=== PATIENT | male | born 1955 | race Caucasian/White ===

== ENCOUNTER 2017-09-28 08:36 | Inpatient (IN) | payer OTHER ==
[~2017-09-28 08:36] MED LIST: EPHEDrine SULFATE 50 MG/5 ML SYG
[2017-09-28] MEDS: AMPICILLIN/SULB 3 GM/NS (PMX) 100 ML IVPB (09:00)
[2017-09-28] MEDS ORDERED: PROPOFOL 20 ML (11:35)
[2017-09-28] MEDS ORDERED: ROCURONIUM 50 MG INJ ×2 (11:35→13:52)
[2017-09-28] MEDS ORDERED: MIDAZOLAM 1 MG/ML 2 ML INJ (11:35)
[2017-09-28] MEDS ORDERED: METOCLOPRAMIDE 10 MG INJ (11:35)
[2017-09-28] MEDS ORDERED: KETOROLAC 30 MG INJ (11:35)
[2017-09-28] MEDS ORDERED: ACETAMINOPHEN 1000MG/100ML IV 100 ML (11:35)
[2017-09-28] MEDS ORDERED: ONDANSETRON 4 MG INJ (11:35)
[2017-09-28] MEDS ORDERED: ONDANSETRON 4 MG INJ IV (12:00)
[2017-09-28] MEDS ORDERED: MEPERIDINE 25 MG INJ IV (12:00)
[2017-09-28] MEDS ORDERED: NALOXONE (0.4 MG/ML) INJ IV (12:00)
[2017-09-28] MEDS ORDERED: HYDROmorphONE (0.2 MG/ML) 10ML SYG IV (12:00)
[2017-09-28] MEDS ORDERED: HYDROmorphONE 0.5 MG/0.5 ML SYG IV (12:00)
[2017-09-28] MEDS ORDERED: HYDROmorphONE 2 MG/ML SYG (13:52)
[2017-09-28] MEDS ORDERED: GLYCOPYRROLATE 0.4 MG INJ (13:55)
[2017-09-28] MEDS ORDERED: NEOSTIGMINE 3 MG/3 ML SYRINGE (13:55)
[2017-09-28] MEDS: HYDROmorphONE (0.2 MG/ML) 10ML SYG IV ×4 (14:42→15:06)
[2017-09-28] MEDS: DIPHENHYDRAMINE 50 MG INJ IV (14:42)
[2017-09-28] MEDS: METOCLOPRAMIDE 10 MG INJ IV (14:43)
[2017-09-28] MEDS ORDERED: morphine 1 MG/ML 30 ML (PCA) IV (15:00)
[2017-09-28] MEDS: FENTAnyl 2MCG/ML-ROPIV 0.2% 100 ML BAG EPI ×2 (15:53→20:06)
[2017-09-28] MEDS: D5W-0.45 NACL + KCL 20 MEQ 1,000 ML IV (17:23)
[2017-09-28] MEDS: SOD CHLORIDE 0.9% 1,000 ML IV (19:00)
[2017-09-29] MEDS: D5W-0.45 NACL + KCL 20 MEQ 1,000 ML IV ×4 (01:27→17:55)
[2017-09-29] MEDS: ACETAMINOPHEN 1000MG/100ML IV 100 ML IVPB (01:42)
[2017-09-29] MEDS: FENTAnyl 2MCG/ML-ROPIV 0.2% 100 ML BAG EPI ×4 (04:01→22:04)
[2017-09-29] MEDS: HYDROmorphONE 0.5 MG/0.5 ML SYG IV (06:12)
[2017-09-29 06:36] LABS: ALANINE AMINOTRANSFERASE 45 IU/L (13-69); ALBUMIN 3.1 g/dl (3.3-4.9); ALKALINE PHOSPHATASE 121 IU/L (42-121); ANION GAP 10 (8-16); ASPARTATE AMINO TRANSFERASE 24 IU/L (15-46); BILIRUBIN,INDIRECT 0.3 mg/dl (0-1.1); BILIRUBIN,TOTAL 0.3 mg/dl (0.2-1.3); BLOOD UREA NITROGEN 11 mg/dl (7-20); CALCIUM 8.5 mg/dl (8.4-10.2); CARBON DIOXIDE 28 mmol/L (21-31); CHLORIDE 104 mmol/L (97-110); GLUCOSE 133 mg/dl (70-220); POTASSIUM 4.6 mmol/L (3.5-5.1); SODIUM 137 mmol/L (135-144); TOTAL PROTEIN 5.9 g/dl (6.1-8.1)
[2017-09-29 08:25] LABS: ADD MAN DIFF? NO
[2017-09-29 08:37] LABS: WHITE BLOOD COUNT 11.1 10^3/ul (4.8-10.8)
[2017-09-29 08:37] LABS: BASOPHILS % 0.3 % (0.0-2.0); EOSINOPHILS % 0.2 % (0.0-7.0); HEMATOCRIT 37.4 % (42.0-52.0); HEMOGLOBIN 12.5 g/dl (14.0-18.0); LYMPHOCYTES # 0.7 10^3/ul (0.8-2.9); LYMPHOCYTES % 6.7 % (15.0-51.0); MEAN CORPUSCULAR HEMOGLOBIN 30.9 pg (29.0-33.0); MEAN CORPUSCULAR HGB CONC 33.4 g/dl (32.0-37.0); MEAN CORPUSCULAR VOLUME 92.3 fl (82.0-101.0); MEAN PLATELET VOLUME 9.8 fl (7.4-10.4); MONOCYTE # 0.5 10^3/ul (0.3-0.9); MONOCYTES % 4.8 % (0.0-11.0); NEUTROPHIL # 9.6 10^3/ul (1.6-7.5); NEUTROPHILS % 86.8 % (39.0-77.0); NUCLEATED RED BLOOD CELLS% 0.4 /100WBC (0.0-0.0); PLATELET COUNT 194 10^3/UL (140-415); RED BLOOD COUNT 4.05 10^6/ul (4.70-6.10); RED CELL DISTRIBUTION WIDTH 12.7 % (11.5-14.5)
[2017-09-29 08:42] LABS: INR 1.15; PROTIME 14.9 Sec (11.9-14.9); PT RATIO 1.2
[2017-09-29 08:43] LABS: PARTIAL THROMBOPLASTIN TIME 32.1 Sec (25.0-35.0)
[2017-09-29 08:47] LABS: POTASSIUM 4.9 mmol/L (3.5-5.1)
[2017-09-29 08:48] LABS: ANION GAP 10 (8-16); BLOOD UREA NITROGEN 9 mg/dl (7-20); CALCIUM 8.8 mg/dl (8.4-10.2); CARBON DIOXIDE 30 mmol/L (21-31); CHLORIDE 103 mmol/L (97-110); CREATININE 1.03 mg/dl (0.61-1.24); GLUCOSE 136 mg/dl (70-220); PHOSPHORUS 3.2 mg/dl (2.5-4.9); SODIUM 138 mmol/L (135-144)
[2017-09-29] MEDS: HYDROmorphONE 1 MG/ML SYG IV ×2 (09:07→19:05)
[2017-09-29] MEDS ORDERED: LIDOCAINE 2% (MDV) 20 ML INJ (09:11)
[2017-09-29] MEDS: ONDANSETRON 4 MG INJ IV ×2 (14:17→22:05)
[2017-09-29] MEDS: PIPER-TAZO 3.375 GM IV (PMX) 100 ML IVPB ×2 (14:17→21:58)
[2017-09-30] MEDS: DIPHENHYDRAMINE 50 MG INJ IV ×3 (01:33→12:23)
[2017-09-30] MEDS: D5W-0.45 NACL + KCL 20 MEQ 1,000 ML IV ×2 (02:57→12:23)
[2017-09-30] MEDS: FENTAnyl 2MCG/ML-ROPIV 0.2% 100 ML BAG EPI ×4 (04:03→22:44)
[2017-09-30] MEDS: PIPER-TAZO 3.375 GM IV (PMX) 100 ML IVPB ×3 (05:36→22:05)
[2017-09-30 11:44] LABS: ADD MAN DIFF? NO
[2017-09-30 11:55] LABS: BASOPHILS % 0.3 % (0.0-2.0); EOSINOPHILS # 0.1 10^3/ul (0.0-0.5); EOSINOPHILS % 1.1 % (0.0-7.0); HEMATOCRIT 36.2 % (42.0-52.0); HEMOGLOBIN 12.1 g/dl (14.0-18.0); LYMPHOCYTES # 0.7 10^3/ul (0.8-2.9); LYMPHOCYTES % 7.5 % (15.0-51.0); MEAN CORPUSCULAR HEMOGLOBIN 30.9 pg (29.0-33.0); MEAN CORPUSCULAR HGB CONC 33.4 g/dl (32.0-37.0); MEAN CORPUSCULAR VOLUME 92.3 fl (82.0-101.0); MEAN PLATELET VOLUME 10.3 fl (7.4-10.4); MONOCYTE # 0.5 10^3/ul (0.3-0.9); MONOCYTES % 4.8 % (0.0-11.0); NEUTROPHIL # 8.4 10^3/ul (1.6-7.5); NEUTROPHILS % 85.3 % (39.0-77.0); PLATELET COUNT 168 10^3/UL (140-415); POSITIVE DIFF @See below; RED BLOOD COUNT 3.92 10^6/ul (4.70-6.10); RED CELL DISTRIBUTION WIDTH 12.7 % (11.5-14.5)
[2017-09-30 11:55] LABS: WHITE BLOOD COUNT 9.9 10^3/ul (4.8-10.8)
[2017-09-30 12:13] LABS: ANION GAP 9 (8-16); BLOOD UREA NITROGEN 8 mg/dl (7-20); CARBON DIOXIDE 30 mmol/L (21-31); CHLORIDE 101 mmol/L (97-110); CREATININE 1.05 mg/dl (0.61-1.24); GLUCOSE 92 mg/dl (70-220); PHOSPHORUS 2.7 mg/dl (2.5-4.9); POTASSIUM 5.3 mmol/L (3.5-5.1); SODIUM 135 mmol/L (135-144)
[2017-09-30 12:27] LABS: INR 1.15; PROTIME 14.9 Sec (11.9-14.9); PT RATIO 1.2
[2017-09-30 12:28] LABS: PARTIAL THROMBOPLASTIN TIME 32.2 Sec (25.0-35.0)
[2017-09-30] MEDS: DEXTROSE 5%-0.45% NACL 1,000 ML IV ×2 (15:16→23:54)
[2017-09-30] MEDS: HYDROmorphONE 1 MG/ML SYG IV (21:38)
[2017-10-01] MEDS: ONDANSETRON 4 MG INJ IV (04:07)
[2017-10-01] MEDS: FENTAnyl 2MCG/ML-ROPIV 0.2% 100 ML BAG EPI ×4 (04:53→22:34)
[2017-10-01] MEDS: PIPER-TAZO 3.375 GM IV (PMX) 100 ML IVPB ×3 (05:45→22:32)
[2017-10-01] MEDS: DEXTROSE 5%-0.45% NACL 1,000 ML IV ×3 (07:30→20:00)
[2017-10-01 09:13] LABS: ADD MAN DIFF? NO
[2017-10-01 09:15] LABS: ABNORMAL IP MESSAGE 1; BASOPHILS % 0.2 % (0.0-2.0); EOSINOPHILS % 0.2 % (0.0-7.0); HEMOGLOBIN 12.1 g/dl (14.0-18.0); LYMPHOCYTES # 0.5 10^3/ul (0.8-2.9); LYMPHOCYTES % 5.5 % (15.0-51.0); MEAN CORPUSCULAR HGB CONC 34.6 g/dl (32.0-37.0); MEAN CORPUSCULAR VOLUME 89.7 fl (82.0-101.0); MEAN PLATELET VOLUME 10.3 fl (7.4-10.4); MONOCYTE # 0.3 10^3/ul (0.3-0.9); MONOCYTES % 3.9 % (0.0-11.0); NEUTROPHIL # 7.2 10^3/ul (1.6-7.5); NEUTROPHILS % 88.5 % (39.0-77.0); PLATELET COUNT 180 10^3/UL (140-415); POSITIVE DIFF @See below; RED CELL DISTRIBUTION WIDTH 12.4 % (11.5-14.5)
[2017-10-01 09:15] LABS: WHITE BLOOD COUNT 8.2 10^3/ul (4.8-10.8)
[2017-10-01 09:45] LABS: ANION GAP 13 (8-16); BLOOD UREA NITROGEN 11 mg/dl (7-20); CARBON DIOXIDE 26 mmol/L (21-31); CHLORIDE 99 mmol/L (97-110); GLUCOSE 135 mg/dl (70-220); PHOSPHORUS 3.3 mg/dl (2.5-4.9); POTASSIUM 4.6 mmol/L (3.5-5.1); SODIUM 133 mmol/L (135-144)
[2017-10-01 09:49] LABS: INR 1.14; PROTIME 14.8 Sec (11.9-14.9); PT RATIO 1.2
[2017-10-01 09:50] LABS: PARTIAL THROMBOPLASTIN TIME 28.8 Sec (25.0-35.0)
[2017-10-02] MEDS: FENTAnyl 2MCG/ML-ROPIV 0.2% 100 ML BAG EPI ×3 (04:11→18:37)
[2017-10-02] MEDS: DEXTROSE 5%-0.45% NACL 1,000 ML IV ×2 (04:11→13:33)
[2017-10-02 05:09] LABS: ADD MAN DIFF? NO
[2017-10-02 05:24] LABS: WHITE BLOOD COUNT 6.8 10^3/ul (4.8-10.8)
[2017-10-02 05:24] LABS: BASOPHILS % 0.3 % (0.0-2.0); EOSINOPHILS # 0.1 10^3/ul (0.0-0.5); EOSINOPHILS % 1.8 % (0.0-7.0); HEMATOCRIT 35.7 % (42.0-52.0); HEMOGLOBIN 12.2 g/dl (14.0-18.0); LYMPHOCYTES # 0.9 10^3/ul (0.8-2.9); MEAN CORPUSCULAR HEMOGLOBIN 30.9 pg (29.0-33.0); MEAN CORPUSCULAR HGB CONC 34.2 g/dl (32.0-37.0); MEAN CORPUSCULAR VOLUME 90.4 fl (82.0-101.0); MEAN PLATELET VOLUME 10.6 fl (7.4-10.4); MONOCYTE # 0.4 10^3/ul (0.3-0.9); MONOCYTES % 5.6 % (0.0-11.0); NEUTROPHIL # 5.2 10^3/ul (1.6-7.5); NEUTROPHILS % 77.4 % (39.0-77.0); PLATELET COUNT 192 10^3/UL (140-415); POSITIVE DIFF @See below; RED BLOOD COUNT 3.95 10^6/ul (4.70-6.10); RED CELL DISTRIBUTION WIDTH 12.4 % (11.5-14.5)
[2017-10-02 05:40] LABS: ANION GAP 11 (8-16); BLOOD UREA NITROGEN 11 mg/dl (7-20); CALCIUM 8.9 mg/dl (8.4-10.2); CARBON DIOXIDE 28 mmol/L (21-31); CHLORIDE 101 mmol/L (97-110); CREATININE 0.94 mg/dl (0.61-1.24); GLUCOSE 115 mg/dl (70-220); POTASSIUM 4.2 mmol/L (3.5-5.1); SODIUM 136 mmol/L (135-144)
[2017-10-02] MEDS: PIPER-TAZO 3.375 GM IV (PMX) 100 ML IVPB ×3 (06:08→22:02)
[2017-10-03] MEDS: FENTAnyl 2MCG/ML-ROPIV 0.2% 100 ML BAG EPI ×2 (01:54→10:09)
[2017-10-03] MEDS: DEXTROSE 5%-0.45% NACL 1,000 ML IV ×2 (04:15→19:37)
[2017-10-03 05:26] LABS: ADD MAN DIFF? NO
[2017-10-03 05:33] LABS: ABNORMAL IP MESSAGE 1; BASOPHILS % 0.7 % (0.0-2.0); EOSINOPHILS # 0.1 10^3/ul (0.0-0.5); EOSINOPHILS % 2.8 % (0.0-7.0); HEMATOCRIT 35.8 % (42.0-52.0); LYMPHOCYTES # 0.6 10^3/ul (0.8-2.9); LYMPHOCYTES % 12.9 % (15.0-51.0); MEAN CORPUSCULAR HEMOGLOBIN 30.2 pg (29.0-33.0); MEAN CORPUSCULAR HGB CONC 33.5 g/dl (32.0-37.0); MEAN CORPUSCULAR VOLUME 90.2 fl (82.0-101.0); MEAN PLATELET VOLUME 10.5 fl (7.4-10.4); MONOCYTE # 0.4 10^3/ul (0.3-0.9); MONOCYTES % 8.8 % (0.0-11.0); NEUTROPHIL # 3.3 10^3/ul (1.6-7.5); NEUTROPHILS % 71.5 % (39.0-77.0); PLATELET COUNT 226 10^3/UL (140-415); POSITIVE DIFF @See below; RED BLOOD COUNT 3.97 10^6/ul (4.70-6.10); RED CELL DISTRIBUTION WIDTH 12.3 % (11.5-14.5)
[2017-10-03 05:33] LABS: WHITE BLOOD COUNT 4.6 10^3/ul (4.8-10.8)
[2017-10-03] MEDS: PIPER-TAZO 3.375 GM IV (PMX) 100 ML IVPB ×3 (05:59→22:30)
[2017-10-03 06:09] LABS: ANION GAP 12 (8-16); BLOOD UREA NITROGEN 11 mg/dl (7-20); CARBON DIOXIDE 29 mmol/L (21-31); CHLORIDE 101 mmol/L (97-110); CREATININE 1.04 mg/dl (0.61-1.24); GLUCOSE 107 mg/dl (70-220); POTASSIUM 4.1 mmol/L (3.5-5.1); SODIUM 138 mmol/L (135-144)
[2017-10-04 06:04] LABS: ADD MAN DIFF? NO
[2017-10-04] MEDS: PIPER-TAZO 3.375 GM IV (PMX) 100 ML IVPB ×2 (06:07→13:37)
[2017-10-04 06:23] LABS: ABNORMAL IP MESSAGE 1; BASOPHILS % 0.6 % (0.0-2.0); EOSINOPHILS # 0.1 10^3/ul (0.0-0.5); EOSINOPHILS % 1.9 % (0.0-7.0); HEMATOCRIT 36.4 % (42.0-52.0); HEMOGLOBIN 12.9 g/dl (14.0-18.0); LYMPHOCYTES # 0.6 10^3/ul (0.8-2.9); LYMPHOCYTES % 7.9 % (15.0-51.0); MEAN CORPUSCULAR HGB CONC 35.4 g/dl (32.0-37.0); MEAN CORPUSCULAR VOLUME 87.5 fl (82.0-101.0); MEAN PLATELET VOLUME 10.6 fl (7.4-10.4); MONOCYTE # 0.4 10^3/ul (0.3-0.9); MONOCYTES % 5.9 % (0.0-11.0); NEUTROPHIL # 5.7 10^3/ul (1.6-7.5); NEUTROPHILS % 81.8 % (39.0-77.0); PLATELET COUNT 291 10^3/UL (140-415); POSITIVE DIFF @See below; RED BLOOD COUNT 4.16 10^6/ul (4.70-6.10); RED CELL DISTRIBUTION WIDTH 12.7 % (11.5-14.5)
[2017-10-04] MEDS: morphine 2 MG INJ IV ×2 (06:49→10:25)
[2017-10-04 06:53] LABS: ANION GAP 13 (8-16); BLOOD UREA NITROGEN 11 mg/dl (7-20); CALCIUM 9.2 mg/dl (8.4-10.2); CARBON DIOXIDE 25 mmol/L (21-31); CHLORIDE 103 mmol/L (97-110); CREATININE 0.89 mg/dl (0.61-1.24); GLUCOSE 125 mg/dl (70-220); POTASSIUM 3.5 mmol/L (3.5-5.1); SODIUM 137 mmol/L (135-144)
[2017-10-04] MEDS: DEXTROSE 5%-0.45% NACL 1,000 ML IV (10:25)
[2017-10-04] MEDS: ONDANSETRON 4 MG INJ IV (17:04)
[2017-10-04] MEDS: HYDROCODONE/APAP (10/325) TAB PO (17:06)
[2017-10-05] MEDS: DEXTROSE 5%-0.45% NACL 1,000 ML IV ×2 (00:45→12:53)
[2017-10-05 05:37] LABS: ADD MAN DIFF? NO
[2017-10-05 05:40] LABS: WHITE BLOOD COUNT 7.2 10^3/ul (4.8-10.8)
[2017-10-05 05:40] LABS: BASOPHILS % 0.6 % (0.0-2.0); EOSINOPHILS # 0.2 10^3/ul (0.0-0.5); EOSINOPHILS % 2.2 % (0.0-7.0); HEMATOCRIT 37.8 % (42.0-52.0); HEMOGLOBIN 13.2 g/dl (14.0-18.0); LYMPHOCYTES # 0.8 10^3/ul (0.8-2.9); LYMPHOCYTES % 11.4 % (15.0-51.0); MEAN CORPUSCULAR HEMOGLOBIN 30.5 pg (29.0-33.0); MEAN CORPUSCULAR HGB CONC 34.9 g/dl (32.0-37.0); MEAN CORPUSCULAR VOLUME 87.3 fl (82.0-101.0); MEAN PLATELET VOLUME 10.1 fl (7.4-10.4); MONOCYTE # 0.5 10^3/ul (0.3-0.9); MONOCYTES % 6.2 % (0.0-11.0); NEUTROPHIL # 5.7 10^3/ul (1.6-7.5); NEUTROPHILS % 78.4 % (39.0-77.0); PLATELET COUNT 331 10^3/UL (140-415); RED BLOOD COUNT 4.33 10^6/ul (4.70-6.10); RED CELL DISTRIBUTION WIDTH 12.7 % (11.5-14.5)
[2017-10-05] MEDS: ONDANSETRON 4 MG INJ IV ×2 (12:47→18:34)
[2017-10-05] MEDS: ACETAMINOPHEN 1000MG/100ML IV 100 ML IVPB (12:47)
[2017-10-05] MEDS: HYDROCODONE/APAP (10/325) TAB PO (15:34)
[2017-10-05] MEDS: ENOXAPARIN 40 MG/0.4 ML SYG SC (21:21)
[2017-10-05] MEDS: FAMOTIDINE 20 MG TAB PO (23:15)
[2017-10-05] MEDS: AL HYDROX/MG HYDROX/SIMETH 30 ML CUP PO (23:15)
[2017-10-06] MEDS: DEXTROSE 5%-0.45% NACL 1,000 ML IV (03:11)
[2017-10-06 05:28] LABS: ADD MAN DIFF? NO
[2017-10-06 05:32] LABS: BASOPHILS % 0.5 % (0.0-2.0); EOSINOPHILS # 0.1 10^3/ul (0.0-0.5); EOSINOPHILS % 1.4 % (0.0-7.0); HEMATOCRIT 37.5 % (42.0-52.0); HEMOGLOBIN 13.1 g/dl (14.0-18.0); LYMPHOCYTES # 0.7 10^3/ul (0.8-2.9); LYMPHOCYTES % 9.7 % (15.0-51.0); MEAN CORPUSCULAR HEMOGLOBIN 30.5 pg (29.0-33.0); MEAN CORPUSCULAR HGB CONC 34.9 g/dl (32.0-37.0); MEAN CORPUSCULAR VOLUME 87.4 fl (82.0-101.0); MEAN PLATELET VOLUME 10.4 fl (7.4-10.4); MONOCYTE # 0.4 10^3/ul (0.3-0.9); MONOCYTES % 5.9 % (0.0-11.0); NEUTROPHILS % 81.3 % (39.0-77.0); PLATELET COUNT 386 10^3/UL (140-415); RED BLOOD COUNT 4.29 10^6/ul (4.70-6.10); RED CELL DISTRIBUTION WIDTH 12.7 % (11.5-14.5)
[2017-10-06 05:32] LABS: WHITE BLOOD COUNT 7.4 10^3/ul (4.8-10.8)
[2017-10-06 08:28] LABS: AADO2 Arterial 57.8 mmHg (7.0-24.0); Allen Test ACCEPTAB; Arterial Base Excess -0.3 mmol/L (-3.0-3); Arterial Blood Gas Oxygen Sat 97.5 mmHG (95.0-98.0); Arterial COHb 0.3 % (0.0-3.0); Arterial Fraction of Oxyhgb 96.9 % (93.0-99.0); Arterial HCO3 22.5 mmol/L (22.0-26.0); Arterial MetHb 0.3 % (0.0-1.5); Arterial Total Hemglobin 15.3 g/dl (12.0-18.0); Arterial pCO2 31.8 mmhg (35-45); MODE NASAL CANNULA; Site Right Radial
[2017-10-06] MEDS: FAMOTIDINE 20 MG TAB PO ×2 (09:00→20:18)
[2017-10-06] MEDS: DIATR MEGLU/DIATRIZOATE SODIUM 120 ML BTL (17:38)
[2017-10-06] MEDS: ENOXAPARIN 40 MG/0.4 ML SYG SC (20:26)
[2017-10-06] MEDS: D5-NS + KCL 20 MEQ 1,000 ML IV (20:28)
[2017-10-07] MEDS: D5-NS + KCL 20 MEQ 1,000 ML IV ×3 (04:46→23:55)
[2017-10-07 05:21] LABS: ADD MAN DIFF? NO
[2017-10-07 05:39] LABS: WHITE BLOOD COUNT 6.4 10^3/ul (4.8-10.8)
[2017-10-07 05:39] LABS: BASOPHILS % 0.5 % (0.0-2.0); EOSINOPHILS # 0.2 10^3/ul (0.0-0.5); HEMATOCRIT 38.1 % (42.0-52.0); HEMOGLOBIN 13.1 g/dl (14.0-18.0); LYMPHOCYTES # 0.6 10^3/ul (0.8-2.9); LYMPHOCYTES % 9.9 % (15.0-51.0); MEAN CORPUSCULAR HEMOGLOBIN 30.4 pg (29.0-33.0); MEAN CORPUSCULAR HGB CONC 34.4 g/dl (32.0-37.0); MEAN CORPUSCULAR VOLUME 88.4 fl (82.0-101.0); MEAN PLATELET VOLUME 10.4 fl (7.4-10.4); MONOCYTE # 0.4 10^3/ul (0.3-0.9); MONOCYTES % 6.4 % (0.0-11.0); NEUTROPHILS % 78.9 % (39.0-77.0); PLATELET COUNT 416 10^3/UL (140-415); RED BLOOD COUNT 4.31 10^6/ul (4.70-6.10); RED CELL DISTRIBUTION WIDTH 13.1 % (11.5-14.5)
[2017-10-07 06:32] LABS: ANION GAP 12 (8-16); BLOOD UREA NITROGEN 22 mg/dl (7-20); CALCIUM 9.2 mg/dl (8.4-10.2); CARBON DIOXIDE 23 mmol/L (21-31); CHLORIDE 104 mmol/L (97-110); CREATININE 0.88 mg/dl (0.61-1.24); GLUCOSE 131 mg/dl (70-220); POTASSIUM 4.3 mmol/L (3.5-5.1); SODIUM 135 mmol/L (135-144)
[2017-10-07] MEDS: FAMOTIDINE 20 MG TAB PO ×2 (09:03→20:24)
[2017-10-07] MEDS: ENOXAPARIN 40 MG/0.4 ML SYG SC (09:09)
[2017-10-08 05:17] LABS: ADD MAN DIFF? NO
[2017-10-08 05:24] LABS: BASOPHILS % 0.7 % (0.0-2.0); EOSINOPHILS # 0.2 10^3/ul (0.0-0.5); EOSINOPHILS % 2.4 % (0.0-7.0); HEMATOCRIT 35.6 % (42.0-52.0); HEMOGLOBIN 12.5 g/dl (14.0-18.0); LYMPHOCYTES # 0.6 10^3/ul (0.8-2.9); LYMPHOCYTES % 9.9 % (15.0-51.0); MEAN CORPUSCULAR HEMOGLOBIN 31.2 pg (29.0-33.0); MEAN CORPUSCULAR HGB CONC 35.1 g/dl (32.0-37.0); MEAN CORPUSCULAR VOLUME 88.8 fl (82.0-101.0); MEAN PLATELET VOLUME 10.2 fl (7.4-10.4); MONOCYTE # 0.5 10^3/ul (0.3-0.9); MONOCYTES % 7.3 % (0.0-11.0); NEUTROPHIL # 4.8 10^3/ul (1.6-7.5); NEUTROPHILS % 78.7 % (39.0-77.0); PLATELET COUNT 362 10^3/UL (140-415); RED BLOOD COUNT 4.01 10^6/ul (4.70-6.10)
[2017-10-08 05:24] LABS: WHITE BLOOD COUNT 6.1 10^3/ul (4.8-10.8)
[2017-10-08 05:59] LABS: ALANINE AMINOTRANSFERASE 59 IU/L (13-69); ALBUMIN 3.4 g/dl (3.3-4.9); ALBUMIN/GLOBULIN RATIO 1.09; ALKALINE PHOSPHATASE 123 IU/L (42-121); ANION GAP 14 (8-16); ASPARTATE AMINO TRANSFERASE 31 IU/L (15-46); BILIRUBIN,INDIRECT 0.3 mg/dl (0-1.1); BILIRUBIN,TOTAL 0.3 mg/dl (0.2-1.3); BLOOD UREA NITROGEN 20 mg/dl (7-20); CALCIUM 9.1 mg/dl (8.4-10.2); CARBON DIOXIDE 21 mmol/L (21-31); CHLORIDE 106 mmol/L (97-110); CREATININE 0.79 mg/dl (0.61-1.24); GLUCOSE 114 mg/dl (70-220); POTASSIUM 4.3 mmol/L (3.5-5.1); SODIUM 137 mmol/L (135-144); TOTAL PROTEIN 6.5 g/dl (6.1-8.1)
[2017-10-08] MEDS: FAMOTIDINE 20 MG TAB PO ×2 (08:53→20:58)
[2017-10-08] MEDS: ENOXAPARIN 40 MG/0.4 ML SYG SC (08:54)
[2017-10-08] MEDS: D5-NS + KCL 20 MEQ 1,000 ML IV ×2 (09:43→19:40)
[2017-10-09] MEDS: D5-NS + KCL 20 MEQ 1,000 ML IV ×2 (05:54→16:09)
[2017-10-09] MEDS: FAMOTIDINE 20 MG TAB PO ×2 (08:42→21:46)
[2017-10-09] MEDS: ENOXAPARIN 40 MG/0.4 ML SYG SC (08:43)
[2017-10-09] MEDS: METOCLOPRAMIDE 5 MG TAB PO (21:46)
[2017-10-10] MEDS: D5-NS + KCL 20 MEQ 1,000 ML IV ×3 (02:55→21:21)
[2017-10-10 05:43] LABS: ADD MAN DIFF? NO
[2017-10-10 05:57] LABS: WHITE BLOOD COUNT 3.8 10^3/ul (4.8-10.8)
[2017-10-10 05:57] LABS: ABNORMAL IP MESSAGE 1; BASOPHILS % 0.8 % (0.0-2.0); EOSINOPHILS # 0.1 10^3/ul (0.0-0.5); EOSINOPHILS % 3.1 % (0.0-7.0); HEMATOCRIT 33.2 % (42.0-52.0); HEMOGLOBIN 11.1 g/dl (14.0-18.0); LYMPHOCYTES # 0.6 10^3/ul (0.8-2.9); MEAN CORPUSCULAR HEMOGLOBIN 30.4 pg (29.0-33.0); MEAN CORPUSCULAR HGB CONC 33.4 g/dl (32.0-37.0); MONOCYTE # 0.4 10^3/ul (0.3-0.9); MONOCYTES % 10.5 % (0.0-11.0); NEUTROPHIL # 2.7 10^3/ul (1.6-7.5); NEUTROPHILS % 70.1 % (39.0-77.0); PLATELET COUNT 326 10^3/UL (140-415); POSITIVE DIFF @See below; RED BLOOD COUNT 3.65 10^6/ul (4.70-6.10); RED CELL DISTRIBUTION WIDTH 12.9 % (11.5-14.5)
[2017-10-10 06:40] LABS: ANION GAP 12 (8-16); BLOOD UREA NITROGEN 15 mg/dl (7-20); CALCIUM 8.6 mg/dl (8.4-10.2); CARBON DIOXIDE 22 mmol/L (21-31); CHLORIDE 108 mmol/L (97-110); GLUCOSE 88 mg/dl (70-220); SODIUM 138 mmol/L (135-144)
[2017-10-10] MEDS: FAMOTIDINE 20 MG TAB PO ×2 (08:19→21:19)
[2017-10-10] MEDS: METOCLOPRAMIDE 5 MG TAB PO ×3 (08:19→21:19)
[2017-10-10] MEDS: ENOXAPARIN 40 MG/0.4 ML SYG SC (08:21)
[2017-10-11 05:08] LABS: ADD MAN DIFF? NO
[2017-10-11 05:11] LABS: WHITE BLOOD COUNT 4.9 10^3/ul (4.8-10.8)
[2017-10-11 05:11] LABS: ABNORMAL IP MESSAGE 1; BASOPHILS % 0.2 % (0.0-2.0); EOSINOPHILS # 0.1 10^3/ul (0.0-0.5); EOSINOPHILS % 2.4 % (0.0-7.0); HEMATOCRIT 33.4 % (42.0-52.0); HEMOGLOBIN 11.6 g/dl (14.0-18.0); LYMPHOCYTES # 0.6 10^3/ul (0.8-2.9); LYMPHOCYTES % 11.8 % (15.0-51.0); MEAN CORPUSCULAR HEMOGLOBIN 31.2 pg (29.0-33.0); MEAN CORPUSCULAR HGB CONC 34.7 g/dl (32.0-37.0); MEAN CORPUSCULAR VOLUME 89.8 fl (82.0-101.0); MEAN PLATELET VOLUME 9.9 fl (7.4-10.4); MONOCYTE # 0.4 10^3/ul (0.3-0.9); MONOCYTES % 7.7 % (0.0-11.0); NEUTROPHIL # 3.8 10^3/ul (1.6-7.5); NEUTROPHILS % 77.3 % (39.0-77.0); PLATELET COUNT 325 10^3/UL (140-415); POSITIVE DIFF @See below; RED BLOOD COUNT 3.72 10^6/ul (4.70-6.10); RED CELL DISTRIBUTION WIDTH 13.2 % (11.5-14.5)
[2017-10-11 05:40] LABS: ANION GAP 10 (8-16); BLOOD UREA NITROGEN 14 mg/dl (7-20); CARBON DIOXIDE 25 mmol/L (21-31); CHLORIDE 108 mmol/L (97-110); CREATININE 0.88 mg/dl (0.61-1.24); GLUCOSE 94 mg/dl (70-220); POTASSIUM 4.8 mmol/L (3.5-5.1); SODIUM 138 mmol/L (135-144)
[2017-10-11] MEDS: FAMOTIDINE 20 MG TAB PO (09:35)
[2017-10-11] MEDS: METOCLOPRAMIDE 5 MG TAB PO ×2 (09:35→13:42)
[2017-10-11] MEDS: ENOXAPARIN 40 MG/0.4 ML SYG SC (09:35)
== END 2017-10-11 19:10 | disposition home or self-care (01) | DRG 330 ==
LOC: REC 08:36 → MS1 17:04
PROC: 0D1H0Z4 Bypass Cecum to Cutaneous, Open Approach (ICD-10-PCS; principal; 2017-09-28 10:30)
PROC: 0DBM0ZZ Excision of Descending Colon, Open Approach (ICD-10-PCS; 2017-09-28 10:30)
PROC: 0DTN0ZZ Resection of Sigmoid Colon, Open Approach (ICD-10-PCS; 2017-09-28 10:30)
PROC: 0DBP0ZZ Excision of Rectum, Open Approach (ICD-10-PCS; 2017-09-28 10:30)
PROC: 0DJD8ZZ Inspection of Lower Intestinal Tract, Via Natural or Artificial Opening Endoscopic (ICD-10-PCS; 2017-09-28 10:30)
DX: C20 Malignant neoplasm of rectum (principal); K56.7 Ileus, unspecified; E87.5 Hyperkalemia
CPT/HCPCS: 36600; 71045; 74240; 74250; 80048; 80053; 82803; 83735; 84100; 84132; 85025; 85610; 85730; 87086; 88307; 93005; 93970; 97110; 97116; 97162

== ENCOUNTER 2017-10-22 14:59 | Inpatient (IN) | payer OTHER ==
[2017-10-22 17:21] LABS: ADD MAN DIFF? NO
[2017-10-22 17:22] LABS: WHITE BLOOD COUNT 13.3 10^3/ul (4.8-10.8)
[2017-10-22 17:23] LABS: ABNORMAL IP MESSAGE 1; BASOPHILS % 0.2 % (0.0-2.0); HEMATOCRIT 35.8 % (42.0-52.0); HEMOGLOBIN 12.5 g/dl (14.0-18.0); LYMPHOCYTES # 0.4 10^3/ul (0.8-2.9); LYMPHOCYTES % 2.7 % (15.0-51.0); MEAN CORPUSCULAR HEMOGLOBIN 30.1 pg (29.0-33.0); MEAN CORPUSCULAR HGB CONC 34.9 g/dl (32.0-37.0); MEAN CORPUSCULAR VOLUME 86.3 fl (82.0-101.0); MEAN PLATELET VOLUME 9.9 fl (7.4-10.4); MONOCYTE # 0.4 10^3/ul (0.3-0.9); MONOCYTES % 2.9 % (0.0-11.0); NEUTROPHIL # 12.5 10^3/ul (1.6-7.5); NEUTROPHILS % 93.8 % (39.0-77.0); PLATELET COUNT 284 10^3/UL (140-415); POSITIVE DIFF @See below; RED BLOOD COUNT 4.15 10^6/ul (4.70-6.10); RED CELL DISTRIBUTION WIDTH 12.9 % (11.5-14.5)
[2017-10-22] MEDS: CEFEPIME 1GM/50 ML (PMX) 50 ML IVPB (17:23)
[2017-10-22] MEDS: ACETAMINOPHEN 325 MG TAB PO (17:23)
[2017-10-22] MEDS: HYDROmorphONE 1 MG/ML SYG IV (17:24)
[2017-10-22] MEDS: SODIUM CHLORIDE 0.9% 1L BAG IV* (17:24)
[2017-10-22 17:40] LABS: PARTIAL THROMBOPLASTIN TIME 35.5 Sec (25.0-35.0)
[2017-10-22 17:43] LABS: ALANINE AMINOTRANSFERASE 32 IU/L (13-69); ALBUMIN 3.7 g/dl (3.3-4.9); ALBUMIN/GLOBULIN RATIO 1.27; ALKALINE PHOSPHATASE 128 IU/L (42-121); ANION GAP 17 (8-16); ASPARTATE AMINO TRANSFERASE 17 IU/L (15-46); BILIRUBIN,INDIRECT 0.6 mg/dl (0-1.1); BILIRUBIN,TOTAL 0.6 mg/dl (0.2-1.3); BLOOD UREA NITROGEN 12 mg/dl (7-20); CALCIUM 9.3 mg/dl (8.4-10.2); CARBON DIOXIDE 22 mmol/L (21-31); CHLORIDE 99 mmol/L (97-110); CREATININE 0.94 mg/dl (0.61-1.24); GLUCOSE 123 mg/dl (70-220); LIPASE 96 U/L (23-300); POTASSIUM 4.3 mmol/L (3.5-5.1); SODIUM 134 mmol/L (135-144); TOTAL PROTEIN 6.6 g/dl (6.1-8.1)
[2017-10-22 17:48] LABS: INR 1.18; PROTIME 15.2 Sec (11.9-14.9); PT RATIO 1.2
[2017-10-22 17:56] LABS: TROPONIN-I < 0.012 ng/ml (0.00-0.12)
[2017-10-22 17:58] LABS: LACTIC ACID 2.3 mmol/L (0.5-2.0)
[2017-10-22 18:17] LABS: ADD UMIC YES; UR ASCORBIC ACID NEGATIVE (NEGATIVE); UR BILIRUBIN (Dip) NEGATIVE (NEGATIVE); UR BLOOD (Dip) 1+ mg/dL (NEGATIVE); UR CLARITY SLIGHTLY CLOUDY (CLEAR); UR COLOR YELLOW (YELLOW); UR GLUCOSE (Dip) NEGATIVE (NEGATIVE); UR KETONES (Dip) 1+ mg/dL (NEGATIVE); UR LEUKOCYTE ESTERASE (Dip) NEGATIVE Leu/ul (NEGATIVE); UR MUCUS FEW /HPF (NONE SEEN); UR NITRITE (Dip) NEGATIVE (NEGATIVE); UR RBC 0 /HPF (0-5); UR SPECIFIC GRAVITY (Dip) 1.019 (1.003-1.030); UR TOTAL PROTEIN (Dip) 1+ mg/dl (NEGATIVE); UR UROBILINOGEN (Dip) NEGATIVE (NEGATIVE); UR WBC 0 /HPF (0-5)
[2017-10-22] MEDS: SOD CHLORIDE 0.9% 100 ML (18:49)
[2017-10-22] MEDS: IOHEXOL 300MG/ML 150 ML BTL (18:49)
[2017-10-22] MEDS: metroNIDAZOLE 500 MG/NS (PMX) 100 ML IVPB (20:13)
[2017-10-23] MEDS ORDERED: NACL 0.9% 3 ML SYG IV (00:30)
[2017-10-23] MEDS ORDERED: ONDANSETRON 4 MG INJ IV (00:30)
[2017-10-23] MEDS: ACETAMINOPHEN 325 MG TAB PO (02:13)
[2017-10-23] MEDS: HYDROmorphONE 1 MG/ML SYG IV ×2 (03:27)
[2017-10-23] MEDS: HYDROmorphONE 2 MG/ML SYG IV ×3 (04:20→18:52)
[2017-10-23] MEDS: ONDANSETRON 4 MG INJ IV ×4 (07:49→18:52)
[2017-10-23] MEDS: FAMOTIDINE 20 MG INJ IV ×2 (08:13→21:13)
[2017-10-23] MEDS: ENOXAPARIN 30 MG/0.3 ML SYG SC (09:09)
[2017-10-23 11:20] LABS: WHITE BLOOD COUNT 9.9 10^3/ul (4.8-10.8)
[2017-10-23 11:20] LABS: ABNORMAL IP MESSAGE 1; HEMATOCRIT 35.9 % (42.0-52.0); HEMOGLOBIN 12.4 g/dl (14.0-18.0); MEAN CORPUSCULAR HEMOGLOBIN 30.8 pg (29.0-33.0); MEAN CORPUSCULAR HGB CONC 34.5 g/dl (32.0-37.0); MEAN CORPUSCULAR VOLUME 89.1 fl (82.0-101.0); MEAN PLATELET VOLUME 9.5 fl (7.4-10.4); PLATELET COUNT 249 10^3/UL (140-415); POSITIVE DIFF @See below; RED BLOOD COUNT 4.03 10^6/ul (4.70-6.10); RED CELL DISTRIBUTION WIDTH 12.9 % (11.5-14.5)
[2017-10-23 11:23] LABS: ADD MAN DIFF? YES
[2017-10-23 11:55] LABS: ANION GAP 13 (8-16); BLOOD UREA NITROGEN 13 mg/dl (7-20); CALCIUM 9.3 mg/dl (8.4-10.2); CARBON DIOXIDE 24 mmol/L (21-31); CHLORIDE 103 mmol/L (97-110); CREATININE 0.88 mg/dl (0.61-1.24); GLUCOSE 142 mg/dl (70-220); POTASSIUM 4.7 mmol/L (3.5-5.1); SODIUM 135 mmol/L (135-144)
[2017-10-23] MEDS ORDERED: VANCOMYCIN IV PER PHARMACY XX (12:00)
[2017-10-23] MEDS: D5W-0.45 NACL + KCL 20 MEQ 1,000 ML IV ×3 (12:11→21:47)
[2017-10-23 12:38] LABS: ANISOCYTOSIS 1+ (0-0); BAND NEUTROPHILS #M 1.4 10^3/ul (0.0-0.6); BAND NEUTROPHILS % (M) 15 % (0-4); BURR CELLS 1+ (0-0); LYMPHOCYTES #M 0.4 10^3/ul (0.8-2.9); LYMPHOCYTES % (M) 5 % (15-51); MICROCYTOSIS 1+ (0-0); MONOCYTE #M 0.1 10^3/ul (0.3-0.9); MONOCYTES % (M) 2 % (0-11); MYELOCYTES % (M) 1 % (0-0); PLATELET ESTIMATE NORMAL; POIKILOCYTOSIS 1+ (0-0); REACTIVE LYMPHOCYTES #M 0.1 10^3/ul (0.0-0.0); REACTIVE LYMPHOCYTES% (M) 2 % (0-0); SEG NEUT #M 7.6 10^3/ul (1.6-7.5); SEGMENTED NEUTROPHILS (M) % 75 % (39-77)
[2017-10-23] MEDS ORDERED: MEROPENEM 500MG/50 ML (PMX) 50 ML IVPB (13:00)
[2017-10-23] MEDS: MEROPENEM 1 GM/50ML(PMX) 50 ML IVPB ×2 (13:25→21:12)
[2017-10-23] MEDS: VANCOMYCIN 1.25 GM in SOD CHLORIDE 0.9% 250 ML IVPB (14:22)
[2017-10-23 15:11] LABS: ADD UMIC YES; UR ASCORBIC ACID NEGATIVE (NEGATIVE); UR BILIRUBIN (Dip) NEGATIVE (NEGATIVE); UR BLOOD (Dip) 1+ mg/dL (NEGATIVE); UR CLARITY CLEAR (CLEAR); UR COLOR YELLOW (YELLOW); UR GLUCOSE (Dip) NEGATIVE (NEGATIVE); UR KETONES (Dip) 1+ mg/dL (NEGATIVE); UR LEUKOCYTE ESTERASE (Dip) NEGATIVE Leu/ul (NEGATIVE); UR MUCUS FEW /HPF (NONE SEEN); UR NITRITE (Dip) NEGATIVE (NEGATIVE); UR RBC 0 /HPF (0-5); UR SPECIFIC GRAVITY (Dip) 1.026 (1.003-1.030); UR TOTAL PROTEIN (Dip) 1+ mg/dl (NEGATIVE); UR UROBILINOGEN (Dip) NEGATIVE (NEGATIVE); UR WBC 1 /HPF (0-5)
[2017-10-24] MEDS: VANCOMYCIN 1 GM 250 ML IVPB ×2 (02:14→14:51)
[2017-10-24] MEDS: D5W-0.45 NACL + KCL 20 MEQ 1,000 ML IV ×3 (03:40→19:01)
[2017-10-24 05:17] LABS: ADD MAN DIFF? NO
[2017-10-24 05:34] LABS: WHITE BLOOD COUNT 5.6 10^3/ul (4.8-10.8)
[2017-10-24 05:34] LABS: ABNORMAL IP MESSAGE 1; BASOPHILS % 0.2 % (0.0-2.0); EOSINOPHILS % 0.7 % (0.0-7.0); HEMATOCRIT 30.9 % (42.0-52.0); HEMOGLOBIN 10.4 g/dl (14.0-18.0); LYMPHOCYTES # 0.5 10^3/ul (0.8-2.9); LYMPHOCYTES % 8.2 % (15.0-51.0); MEAN CORPUSCULAR HEMOGLOBIN 30.2 pg (29.0-33.0); MEAN CORPUSCULAR HGB CONC 33.7 g/dl (32.0-37.0); MEAN CORPUSCULAR VOLUME 89.8 fl (82.0-101.0); MEAN PLATELET VOLUME 10.2 fl (7.4-10.4); MONOCYTE # 0.3 10^3/ul (0.3-0.9); MONOCYTES % 5.9 % (0.0-11.0); NEUTROPHIL # 4.7 10^3/ul (1.6-7.5); NEUTROPHILS % 84.8 % (39.0-77.0); PLATELET COUNT 222 10^3/UL (140-415); POSITIVE DIFF @See below; RED BLOOD COUNT 3.44 10^6/ul (4.70-6.10)
[2017-10-24 05:40] LABS: ANION GAP 10 (8-16); BLOOD UREA NITROGEN 13 mg/dl (7-20); CALCIUM 8.8 mg/dl (8.4-10.2); CARBON DIOXIDE 26 mmol/L (21-31); CHLORIDE 104 mmol/L (97-110); CREATININE 0.79 mg/dl (0.61-1.24); GLUCOSE 109 mg/dl (70-220); POTASSIUM 4.5 mmol/L (3.5-5.1); SODIUM 135 mmol/L (135-144)
[2017-10-24 05:44] LABS: ALANINE AMINOTRANSFERASE 28 IU/L (13-69); ALBUMIN 2.8 g/dl (3.3-4.9); ALBUMIN/GLOBULIN RATIO 0.96; ALKALINE PHOSPHATASE 90 IU/L (42-121); ANION GAP 9 (8-16); ASPARTATE AMINO TRANSFERASE 13 IU/L (15-46); BILIRUBIN,INDIRECT 0.1 mg/dl (0-1.1); BILIRUBIN,TOTAL 0.1 mg/dl (0.2-1.3); BLOOD UREA NITROGEN 13 mg/dl (7-20); CALCIUM 8.6 mg/dl (8.4-10.2); CARBON DIOXIDE 27 mmol/L (21-31); CHLORIDE 105 mmol/L (97-110); GLUCOSE 108 mg/dl (70-220); POTASSIUM 4.3 mmol/L (3.5-5.1); SODIUM 137 mmol/L (135-144); TOTAL PROTEIN 5.7 g/dl (6.1-8.1)
[2017-10-24] MEDS: MEROPENEM 1 GM/50ML(PMX) 50 ML IVPB ×3 (06:44→21:30)
[2017-10-24] MEDS: INFLUENZA VIRUS VACCINE 0.5 ML (DISPENSING) IM* (06:48)
[2017-10-24] MEDS: FAMOTIDINE 20 MG INJ IV ×2 (08:11→21:25)
[2017-10-24] MEDS: HYDROmorphONE 2 MG/ML SYG IV ×3 (08:11→21:25)
[2017-10-24] MEDS: ENOXAPARIN 30 MG/0.3 ML SYG SC (08:16)
[2017-10-24] MEDS: NYSTATIN SUSP 5 ML CUP PO ×2 (17:00→21:25)
[2017-10-25 03:24] LABS: VANCOMYCIN,TROUGH 7.2 ug/ml (10.0-20.0)
[2017-10-25] MEDS: VANCOMYCIN 1 GM 250 ML IVPB ×3 (03:30→19:29)
[2017-10-25] MEDS: ONDANSETRON 4 MG INJ IV (05:19)
[2017-10-25] MEDS: D5W-0.45 NACL + KCL 20 MEQ 1,000 ML IV ×3 (05:19→21:03)
[2017-10-25] MEDS: HYDROmorphONE 2 MG/ML SYG IV ×2 (05:24→10:09)
[2017-10-25] MEDS: MEROPENEM 1 GM/50ML(PMX) 50 ML IVPB ×3 (05:51→21:40)
[2017-10-25] MEDS: FAMOTIDINE 20 MG INJ IV ×2 (08:34→21:03)
[2017-10-25] MEDS: ENOXAPARIN 30 MG/0.3 ML SYG SC (08:40)
[2017-10-25] MEDS: NYSTATIN SUSP 5 ML CUP PO ×4 (08:41→21:39)
[2017-10-25] MEDS ORDERED: HYDROmorphONE 0.5 MG/0.5 ML SYG IV ×3 (10:00→16:58)
[2017-10-25] MEDS: HYDROmorphONE 1 MG/ML SYG IV ×4 (14:21→21:51)
[2017-10-25] MEDS ORDERED: DIATR MEGLU/DIATRIZOATE SODIUM 120 ML BTL (15:13)
[2017-10-26] MEDS: VANCOMYCIN 1 GM 250 ML IVPB ×3 (02:37→18:13)
[2017-10-26 02:56] LABS: VANCOMYCIN,TROUGH 14.8 ug/ml (10.0-20.0)
[2017-10-26 05:31] LABS: ADD MAN DIFF? NO
[2017-10-26 05:35] LABS: WHITE BLOOD COUNT 6.9 10^3/ul (4.8-10.8)
[2017-10-26 05:35] LABS: BASOPHILS % 0.3 % (0.0-2.0); EOSINOPHILS % 0.6 % (0.0-7.0); HEMATOCRIT 33.9 % (42.0-52.0); HEMOGLOBIN 11.3 g/dl (14.0-18.0); LYMPHOCYTES # 0.8 10^3/ul (0.8-2.9); LYMPHOCYTES % 11.2 % (15.0-51.0); MEAN CORPUSCULAR HEMOGLOBIN 29.7 pg (29.0-33.0); MEAN CORPUSCULAR HGB CONC 33.3 g/dl (32.0-37.0); MONOCYTE # 0.5 10^3/ul (0.3-0.9); MONOCYTES % 7.1 % (0.0-11.0); NEUTROPHIL # 5.5 10^3/ul (1.6-7.5); NEUTROPHILS % 80.5 % (39.0-77.0); PLATELET COUNT 256 10^3/UL (140-415); RED BLOOD COUNT 3.81 10^6/ul (4.70-6.10); RED CELL DISTRIBUTION WIDTH 12.4 % (11.5-14.5)
[2017-10-26 05:51] LABS: ANION GAP 10 (8-16); BLOOD UREA NITROGEN 9 mg/dl (7-20); CALCIUM 8.9 mg/dl (8.4-10.2); CARBON DIOXIDE 32 mmol/L (21-31); CHLORIDE 100 mmol/L (97-110); CREATININE 0.95 mg/dl (0.61-1.24); GLUCOSE 133 mg/dl (70-220); POTASSIUM 4.7 mmol/L (3.5-5.1); SODIUM 137 mmol/L (135-144)
[2017-10-26] MEDS: MEROPENEM 1 GM/50ML(PMX) 50 ML IVPB ×3 (05:52→21:18)
[2017-10-26] MEDS: HYDROmorphONE 1 MG/ML SYG IV ×5 (05:57→21:17)
[2017-10-26] MEDS: D5W-0.45 NACL + KCL 20 MEQ 1,000 ML IV ×3 (05:58→17:10)
[2017-10-26] MEDS: NYSTATIN SUSP 5 ML CUP PO ×4 (09:00→21:17)
[2017-10-26] MEDS: FAMOTIDINE 20 MG INJ IV ×2 (09:00→21:17)
[2017-10-26] MEDS: ENOXAPARIN 30 MG/0.3 ML SYG SC (09:01)
[2017-10-27] MEDS: HYDROmorphONE 1 MG/ML SYG IV ×4 (00:11→10:01)
[2017-10-27] MEDS: VANCOMYCIN 1 GM 250 ML IVPB ×2 (02:57→12:30)
[2017-10-27 05:48] LABS: ADD MAN DIFF? NO
[2017-10-27 05:56] LABS: BASOPHILS % 0.3 % (0.0-2.0); EOSINOPHILS # 0.1 10^3/ul (0.0-0.5); EOSINOPHILS % 1.4 % (0.0-7.0); HEMATOCRIT 34.1 % (42.0-52.0); HEMOGLOBIN 11.2 g/dl (14.0-18.0); LYMPHOCYTES # 0.9 10^3/ul (0.8-2.9); LYMPHOCYTES % 12.3 % (15.0-51.0); MEAN CORPUSCULAR HEMOGLOBIN 29.4 pg (29.0-33.0); MEAN CORPUSCULAR HGB CONC 32.8 g/dl (32.0-37.0); MEAN CORPUSCULAR VOLUME 89.5 fl (82.0-101.0); MEAN PLATELET VOLUME 10.2 fl (7.4-10.4); MONOCYTE # 0.6 10^3/ul (0.3-0.9); MONOCYTES % 8.6 % (0.0-11.0); NEUTROPHIL # 5.5 10^3/ul (1.6-7.5); NEUTROPHILS % 76.8 % (39.0-77.0); PLATELET COUNT 258 10^3/UL (140-415); RED BLOOD COUNT 3.81 10^6/ul (4.70-6.10); RED CELL DISTRIBUTION WIDTH 12.5 % (11.5-14.5)
[2017-10-27 05:56] LABS: WHITE BLOOD COUNT 7.1 10^3/ul (4.8-10.8)
[2017-10-27] MEDS: MEROPENEM 1 GM/50ML(PMX) 50 ML IVPB (06:09)
[2017-10-27 06:15] LABS: CREATININE 0.87 mg/dl (0.61-1.24)
[2017-10-27 06:15] LABS: BLOOD UREA NITROGEN 9 mg/dl (7-20)
[2017-10-27 06:22] LABS: ANION GAP 10 (8-16); BLOOD UREA NITROGEN 9 mg/dl (7-20); CARBON DIOXIDE 29 mmol/L (21-31); CHLORIDE 98 mmol/L (97-110); CREATININE 0.89 mg/dl (0.61-1.24); GLUCOSE 101 mg/dl (70-220); POTASSIUM 4.4 mmol/L (3.5-5.1); SODIUM 133 mmol/L (135-144)
[2017-10-27] MEDS: FAMOTIDINE 20 MG INJ IV ×2 (08:58→20:16)
[2017-10-27] MEDS: NYSTATIN SUSP 5 ML CUP PO ×4 (08:58→20:17)
[2017-10-27] MEDS: ENOXAPARIN 30 MG/0.3 ML SYG SC (09:55)
[2017-10-27] MEDS: D5W-0.45 NACL + KCL 20 MEQ 1,000 ML IV ×3 (10:04→22:33)
[2017-10-27] MEDS ORDERED: HYDROmorphONE 1 MG/ML SYG IV (14:15)
[2017-10-27] MEDS: HYDROmorphONE 0.5 MG/0.5 ML SYG IV ×3 (15:25→22:29)
[2017-10-27] MEDS: TAMSULOSIN (SR) 0.4 MG CAP PO (22:29)
[2017-10-27] MEDS: ACETAMINOPHEN 325 MG TAB PO (23:35)
[2017-10-28] MEDS: HYDROmorphONE 0.5 MG/0.5 ML SYG IV ×7 (01:47→23:20)
[2017-10-28 05:27] LABS: ADD MAN DIFF? NO
[2017-10-28 05:41] LABS: WHITE BLOOD COUNT 6.5 10^3/ul (4.8-10.8)
[2017-10-28 05:41] LABS: BASOPHILS % 0.5 % (0.0-2.0); EOSINOPHILS # 0.1 10^3/ul (0.0-0.5); LYMPHOCYTES % 14.8 % (15.0-51.0); MEAN CORPUSCULAR HEMOGLOBIN 30.5 pg (29.0-33.0); MEAN CORPUSCULAR HGB CONC 34.3 g/dl (32.0-37.0); MEAN CORPUSCULAR VOLUME 88.8 fl (82.0-101.0); MONOCYTE # 0.6 10^3/ul (0.3-0.9); MONOCYTES % 8.8 % (0.0-11.0); NEUTROPHIL # 4.8 10^3/ul (1.6-7.5); NEUTROPHILS % 73.3 % (39.0-77.0); PLATELET COUNT 271 10^3/UL (140-415); RED BLOOD COUNT 3.94 10^6/ul (4.70-6.10); RED CELL DISTRIBUTION WIDTH 12.8 % (11.5-14.5)
[2017-10-28 06:13] LABS: ANION GAP 17 (8-16); BLOOD UREA NITROGEN 10 mg/dl (7-20); CALCIUM 9.5 mg/dl (8.4-10.2); CARBON DIOXIDE 29 mmol/L (21-31); CHLORIDE 98 mmol/L (97-110); GLUCOSE 119 mg/dl (70-220); POTASSIUM 4.3 mmol/L (3.5-5.1); SODIUM 140 mmol/L (135-144)
[2017-10-28] MEDS: D5W-0.45 NACL + KCL 20 MEQ 1,000 ML IV ×2 (06:47→16:23)
[2017-10-28] MEDS: NYSTATIN SUSP 5 ML CUP PO ×4 (08:28→20:17)
[2017-10-28] MEDS: FAMOTIDINE 20 MG INJ IV ×2 (08:28→20:17)
[2017-10-28] MEDS: ENOXAPARIN 30 MG/0.3 ML SYG SC (08:29)
[2017-10-28] MEDS: ACETAMINOPHEN 325 MG TAB PO (10:38)
[2017-10-28] MEDS: HYDROCODONE/APAP (5/325) TAB PO (18:53)
[2017-10-28] MEDS: METOCLOPRAMIDE 5 MG TAB PO (20:17)
[2017-10-28] MEDS: TAMSULOSIN (SR) 0.4 MG CAP PO (20:24)
[2017-10-29] MEDS: HYDROCODONE/APAP (5/325) TAB PO ×4 (01:01→18:50)
[2017-10-29] MEDS: D5W-0.45 NACL + KCL 20 MEQ 1,000 ML IV ×4 (01:04→18:53)
[2017-10-29] MEDS: HYDROmorphONE 0.5 MG/0.5 ML SYG IV ×3 (02:31→16:12)
[2017-10-29 06:09] LABS: ADD MAN DIFF? NO
[2017-10-29 06:16] LABS: ABNORMAL IP MESSAGE 1; BASOPHILS % 0.2 % (0.0-2.0); EOSINOPHILS # 0.1 10^3/ul (0.0-0.5); HEMATOCRIT 31.9 % (42.0-52.0); HEMOGLOBIN 10.8 g/dl (14.0-18.0); LYMPHOCYTES # 0.5 10^3/ul (0.8-2.9); LYMPHOCYTES % 10.6 % (15.0-51.0); MEAN CORPUSCULAR HEMOGLOBIN 29.7 pg (29.0-33.0); MEAN CORPUSCULAR HGB CONC 33.9 g/dl (32.0-37.0); MEAN CORPUSCULAR VOLUME 87.6 fl (82.0-101.0); MEAN PLATELET VOLUME 10.1 fl (7.4-10.4); MONOCYTE # 0.4 10^3/ul (0.3-0.9); MONOCYTES % 8.2 % (0.0-11.0); NEUTROPHIL # 3.8 10^3/ul (1.6-7.5); PLATELET COUNT 303 10^3/UL (140-415); POSITIVE DIFF @See below; RED BLOOD COUNT 3.64 10^6/ul (4.70-6.10); RED CELL DISTRIBUTION WIDTH 12.7 % (11.5-14.5)
[2017-10-29 06:16] LABS: WHITE BLOOD COUNT 4.9 10^3/ul (4.8-10.8)
[2017-10-29 06:31] LABS: ANION GAP 13 (8-16); BLOOD UREA NITROGEN 8 mg/dl (7-20); CALCIUM 8.8 mg/dl (8.4-10.2); CARBON DIOXIDE 27 mmol/L (21-31); CHLORIDE 98 mmol/L (97-110); CREATININE 0.73 mg/dl (0.61-1.24); GLUCOSE 120 mg/dl (70-220); SODIUM 134 mmol/L (135-144)
[2017-10-29] MEDS: FAMOTIDINE 20 MG INJ IV ×2 (08:21→20:55)
[2017-10-29] MEDS: NYSTATIN SUSP 5 ML CUP PO ×4 (08:21→20:55)
[2017-10-29] MEDS: METOCLOPRAMIDE 5 MG TAB PO ×3 (08:21→20:55)
[2017-10-29] MEDS: ENOXAPARIN 30 MG/0.3 ML SYG SC (08:23)
[2017-10-29] MEDS: TAMSULOSIN (SR) 0.4 MG CAP PO (21:00)
[2017-10-30] MEDS: HYDROmorphONE 0.5 MG/0.5 ML SYG IV ×4 (01:43→11:22)
[2017-10-30] MEDS: D5W-0.45 NACL + KCL 20 MEQ 1,000 ML IV ×3 (04:42→22:49)
[2017-10-30 05:00] LABS: ADD MAN DIFF? NO
[2017-10-30 05:02] LABS: WHITE BLOOD COUNT 5.1 10^3/ul (4.8-10.8)
[2017-10-30 05:02] LABS: BASOPHILS % 0.2 % (0.0-2.0); EOSINOPHILS # 0.1 10^3/ul (0.0-0.5); EOSINOPHILS % 1.2 % (0.0-7.0); HEMATOCRIT 30.7 % (42.0-52.0); HEMOGLOBIN 10.7 g/dl (14.0-18.0); LYMPHOCYTES # 0.6 10^3/ul (0.8-2.9); LYMPHOCYTES % 12.1 % (15.0-51.0); MEAN CORPUSCULAR HEMOGLOBIN 30.3 pg (29.0-33.0); MEAN CORPUSCULAR HGB CONC 34.9 g/dl (32.0-37.0); MEAN PLATELET VOLUME 9.6 fl (7.4-10.4); MONOCYTE # 0.5 10^3/ul (0.3-0.9); MONOCYTES % 9.1 % (0.0-11.0); NEUTROPHIL # 3.9 10^3/ul (1.6-7.5); PLATELET COUNT 318 10^3/UL (140-415); RED BLOOD COUNT 3.53 10^6/ul (4.70-6.10); RED CELL DISTRIBUTION WIDTH 13.1 % (11.5-14.5)
[2017-10-30 05:25] LABS: ANION GAP 13 (8-16); BLOOD UREA NITROGEN 7 mg/dl (7-20); CARBON DIOXIDE 30 mmol/L (21-31); CHLORIDE 97 mmol/L (97-110); CREATININE 0.79 mg/dl (0.61-1.24); GLUCOSE 114 mg/dl (70-220); POTASSIUM 4.7 mmol/L (3.5-5.1); SODIUM 135 mmol/L (135-144)
[2017-10-30] MEDS: FAMOTIDINE 20 MG INJ IV ×2 (08:56→20:33)
[2017-10-30] MEDS: METOCLOPRAMIDE 5 MG TAB PO ×3 (08:57→20:33)
[2017-10-30] MEDS: ENOXAPARIN 30 MG/0.3 ML SYG SC (08:57)
[2017-10-30] MEDS: NYSTATIN SUSP 5 ML CUP PO ×4 (08:57→20:33)
[2017-10-30] MEDS: HYDROCODONE/APAP (5/325) TAB PO ×3 (12:51→22:54)
[2017-10-31 06:50] LABS: ADD MAN DIFF? NO
[2017-10-31 06:58] LABS: ABNORMAL IP MESSAGE 1; BASOPHILS % 0.2 % (0.0-2.0); EOSINOPHILS # 0.1 10^3/ul (0.0-0.5); EOSINOPHILS % 1.7 % (0.0-7.0); HEMOGLOBIN 11.3 g/dl (14.0-18.0); LYMPHOCYTES # 0.5 10^3/ul (0.8-2.9); LYMPHOCYTES % 9.5 % (15.0-51.0); MEAN CORPUSCULAR HEMOGLOBIN 29.4 pg (29.0-33.0); MEAN CORPUSCULAR HGB CONC 33.2 g/dl (32.0-37.0); MEAN CORPUSCULAR VOLUME 88.5 fl (82.0-101.0); MEAN PLATELET VOLUME 9.9 fl (7.4-10.4); MONOCYTE # 0.4 10^3/ul (0.3-0.9); MONOCYTES % 7.8 % (0.0-11.0); NEUTROPHIL # 4.3 10^3/ul (1.6-7.5); NEUTROPHILS % 79.3 % (39.0-77.0); PLATELET COUNT 339 10^3/UL (140-415); POSITIVE DIFF @See below; RED BLOOD COUNT 3.84 10^6/ul (4.70-6.10); RED CELL DISTRIBUTION WIDTH 13.2 % (11.5-14.5)
[2017-10-31 06:58] LABS: WHITE BLOOD COUNT 5.4 10^3/ul (4.8-10.8)
[2017-10-31] MEDS: ENOXAPARIN 30 MG/0.3 ML SYG SC (08:33)
[2017-10-31] MEDS: FAMOTIDINE 20 MG INJ IV (08:33)
[2017-10-31] MEDS: METOCLOPRAMIDE 5 MG TAB PO ×2 (08:33→12:47)
[2017-10-31] MEDS: NYSTATIN SUSP 5 ML CUP PO ×3 (08:34→17:00)
[2017-10-31] MEDS: HYDROCODONE/APAP (5/325) TAB PO ×2 (08:34→12:47)
[2017-10-31] MEDS: D5W-0.45 NACL + KCL 20 MEQ 1,000 ML IV (09:47)
== END 2017-10-31 18:30 | disposition home or self-care (01) | DRG 872 ==
LOC: MS3 18:26 → PP2 10-27 15:00 → E/R 14:59
DX: A41.9 Sepsis, unspecified organism (principal); R18.8 Other ascites; B37.0 Candidal stomatitis; R33.9 Retention of urine, unspecified; Z93.2 Ileostomy status; Z92.21 Personal history of antineoplastic chemotherapy; Z90.49 Acquired absence of other specified parts of digestive tract; Z87.891 Personal history of nicotine dependence; Z85.048 Personal history of other malignant neoplasm of rectum, rectosigmoid junction, and anus; Z92.3 Personal history of irradiation
CPT/HCPCS: 36415; 71045; 74018; 74177; 74250; 80048; 80053; 80202; 81001; 82565; 82962; 83605; 83690; 84484; 84520; 85025; 85610; 85730; 86850; 86900; 86901; 87040; 87045; 87086; 93005; 96374; 96375; 96376; 99291-25

== ENCOUNTER 2018-01-04 08:30 | Inpatient (IN) | payer OTHER ==
[2018-01-04] MEDS: AMPICILLIN/SULB 3 GM/NS (PMX) 100 ML IVPB (08:00)
[2018-01-04] MEDS: metroNIDAZOLE 500 MG/NS (PMX) 100 ML IVPB (08:00)
[~2018-01-04 08:30] MED LIST changes: -EPHEDrine SULFATE 50 MG/5 ML SYG; +SOD CHLORIDE 0.9% 1,000 ML IV
[2018-01-04] MEDS ORDERED: ROCURONIUM 50 MG INJ (08:48)
[2018-01-04] MEDS ORDERED: ACETAMINOPHEN 1000MG/100ML IV 100 ML (08:48)
[2018-01-04] MEDS ORDERED: CEFAZOLIN 1 GM INJ (08:48)
[2018-01-04] MEDS ORDERED: PROPOFOL 20 ML (08:48)
[2018-01-04] MEDS ORDERED: LIDOCAINE 100 MG SYRINGE (08:48)
[2018-01-04] MEDS ORDERED: SUGAMMADEX SODIUM 200 MG/2 ML VIAL IV (08:50)
[2018-01-04] MEDS ORDERED: ONDANSETRON 4 MG INJ (08:50)
[2018-01-04] MEDS ORDERED: DEXAMETHASONE 4 MG/ML 1 ML INJ (08:50)
[2018-01-04] MEDS ORDERED: MIDAZOLAM 1 MG/ML 2 ML INJ (10:26)
[2018-01-04] MEDS ORDERED: FENTAnyl 50 MCG/ML VIAL (10:26)
[2018-01-04] MEDS ORDERED: HYDROmorphONE 2 MG/ML SYG (10:27)
[2018-01-04] MEDS ORDERED: metroNIDAZOLE 500 MG/NS (PMX) 100 ML IVPB (10:58)
[2018-01-04] MEDS ORDERED: EPHEDrine SULFATE 50 MG/5 ML SYG (12:24)
[2018-01-04] MEDS: BUPIVACAINE 0.5%/EPI (SDV) 30 ML INJ INJ (12:53)
[2018-01-04] MEDS ORDERED: KETOROLAC 30 MG INJ IV (13:30)
[2018-01-04] MEDS ORDERED: FENTAnyl 50 MCG/ML VIAL IV ×2 (13:30)
[2018-01-04] MEDS ORDERED: HYDROmorphONE (0.2 MG/ML) 10ML SYG IV ×2 (13:30)
[2018-01-04] MEDS ORDERED: ACETAMINOPHEN 1000MG/100ML IV 100 ML IVPB (13:30)
[2018-01-04] MEDS: ONDANSETRON 4 MG INJ IV ×3 (13:41→22:42)
[2018-01-04] MEDS: morphine 1 MG/ML 30 ML (PCA) IV ×2 (13:45→22:15)
[2018-01-04] MEDS ORDERED: LABETALOL HCL 20MG INJ (14:24)
[2018-01-04] MEDS: LABETALOL HCL 20MG INJ IV (14:44)
[2018-01-04] MEDS: D5W-0.45 NACL + KCL 20 MEQ 1,000 ML IV ×2 (17:45→21:11)
[2018-01-05] MEDS: D5W-0.45 NACL + KCL 20 MEQ 1,000 ML IV ×3 (01:46→11:11)
[2018-01-05 11:04] LABS: ADD MAN DIFF? NO
[2018-01-05 11:08] LABS: BASOPHILS % 0.2 % (0.0-2.0); HEMATOCRIT 36.6 % (42.0-52.0); HEMOGLOBIN 11.9 g/dl (14.0-18.0); LYMPHOCYTES # 1.2 10^3/ul (0.8-2.9); LYMPHOCYTES % 12.5 % (15.0-51.0); MEAN CORPUSCULAR HEMOGLOBIN 29.3 pg (29.0-33.0); MEAN CORPUSCULAR HGB CONC 32.5 g/dl (32.0-37.0); MEAN CORPUSCULAR VOLUME 90.1 fl (82.0-101.0); MEAN PLATELET VOLUME 9.8 fl (7.4-10.4); MONOCYTE # 0.8 10^3/ul (0.3-0.9); MONOCYTES % 7.9 % (0.0-11.0); NEUTROPHIL # 7.5 10^3/ul (1.6-7.5); NEUTROPHILS % 79.1 % (39.0-77.0); PLATELET COUNT 206 10^3/UL (140-415); RED BLOOD COUNT 4.06 10^6/ul (4.70-6.10); RED CELL DISTRIBUTION WIDTH 15.2 % (11.5-14.5)
[2018-01-05 11:08] LABS: WHITE BLOOD COUNT 9.5 10^3/ul (4.8-10.8)
[2018-01-05 11:29] LABS: ANION GAP 14 (8-16); BLOOD UREA NITROGEN 9 mg/dl (7-20); CALCIUM 9.4 mg/dl (8.4-10.2); CARBON DIOXIDE 27 mmol/L (21-31); CHLORIDE 105 mmol/L (97-110); CREATININE 0.81 mg/dl (0.61-1.24); GLUCOSE 126 mg/dl (70-220); PHOSPHORUS 3.4 mg/dl (2.5-4.9); SODIUM 141 mmol/L (135-144)
[2018-01-05 11:30] LABS: POTASSIUM 5.3 mmol/L (3.5-5.1)
[2018-01-05 11:37] LABS: INR 1.13; PROTIME 14.7 Sec (11.9-14.9); PT RATIO 1.1
[2018-01-05 11:38] LABS: PARTIAL THROMBOPLASTIN TIME 28.3 Sec (25.0-35.0)
[2018-01-05] MEDS: DEXTROSE 5%-0.45% NACL 1,000 ML IV ×2 (12:55→21:01)
[2018-01-05] MEDS: ONDANSETRON 4 MG INJ IV (13:20)
[2018-01-06] MEDS: IBUPROFEN 400 MG TAB PO (05:18)
[2018-01-06] MEDS: DEXTROSE 5%-0.45% NACL 1,000 ML IV ×4 (05:21→23:09)
[2018-01-06 11:02] LABS: ADD MAN DIFF? NO
[2018-01-06 11:06] LABS: WHITE BLOOD COUNT 4.9 10^3/ul (4.8-10.8)
[2018-01-06 11:07] LABS: BASOPHILS % 0.6 % (0.0-2.0); EOSINOPHILS # 0.1 10^3/ul (0.0-0.5); EOSINOPHILS % 1.2 % (0.0-7.0); HEMATOCRIT 36.7 % (42.0-52.0); HEMOGLOBIN 11.7 g/dl (14.0-18.0); LYMPHOCYTES % 20.8 % (15.0-51.0); MEAN CORPUSCULAR HEMOGLOBIN 28.8 pg (29.0-33.0); MEAN CORPUSCULAR HGB CONC 31.9 g/dl (32.0-37.0); MEAN CORPUSCULAR VOLUME 90.4 fl (82.0-101.0); MEAN PLATELET VOLUME 9.7 fl (7.4-10.4); MONOCYTE # 0.3 10^3/ul (0.3-0.9); NEUTROPHIL # 3.4 10^3/ul (1.6-7.5); NEUTROPHILS % 70.2 % (39.0-77.0); PLATELET COUNT 183 10^3/UL (140-415); RED BLOOD COUNT 4.06 10^6/ul (4.70-6.10); RED CELL DISTRIBUTION WIDTH 15.5 % (11.5-14.5)
[2018-01-06 11:26] LABS: INR 1.12; PARTIAL THROMBOPLASTIN TIME 27.7 Sec (25.0-35.0); PROTIME 14.6 Sec (11.9-14.9); PT RATIO 1.1
[2018-01-06 11:34] LABS: ANION GAP 10 (8-16); BLOOD UREA NITROGEN 7 mg/dl (7-20); CALCIUM 8.9 mg/dl (8.4-10.2); CARBON DIOXIDE 33 mmol/L (21-31); CHLORIDE 103 mmol/L (97-110); CREATININE 0.88 mg/dl (0.61-1.24); GLUCOSE 101 mg/dl (70-220); PHOSPHORUS 3.5 mg/dl (2.5-4.9); POTASSIUM 4.2 mmol/L (3.5-5.1); SODIUM 142 mmol/L (135-144)
[2018-01-07] MEDS: DEXTROSE 5%-0.45% NACL 1,000 ML IV ×2 (08:35→17:47)
[2018-01-07 11:41] LABS: ADD MAN DIFF? NO
[2018-01-07 12:11] LABS: BASOPHILS % 0.4 % (0.0-2.0); EOSINOPHILS # 0.1 10^3/ul (0.0-0.5); EOSINOPHILS % 0.9 % (0.0-7.0); HEMATOCRIT 37.9 % (42.0-52.0); HEMOGLOBIN 12.4 g/dl (14.0-18.0); LYMPHOCYTES # 1.3 10^3/ul (0.8-2.9); LYMPHOCYTES % 24.1 % (15.0-51.0); MEAN CORPUSCULAR HEMOGLOBIN 29.2 pg (29.0-33.0); MEAN CORPUSCULAR HGB CONC 32.7 g/dl (32.0-37.0); MEAN CORPUSCULAR VOLUME 89.2 fl (82.0-101.0); MEAN PLATELET VOLUME 9.9 fl (7.4-10.4); MONOCYTE # 0.4 10^3/ul (0.3-0.9); MONOCYTES % 7.2 % (0.0-11.0); NEUTROPHIL # 3.8 10^3/ul (1.6-7.5); NEUTROPHILS % 67.2 % (39.0-77.0); PLATELET COUNT 203 10^3/UL (140-415); RED BLOOD COUNT 4.25 10^6/ul (4.70-6.10); RED CELL DISTRIBUTION WIDTH 15.1 % (11.5-14.5)
[2018-01-07 12:11] LABS: WHITE BLOOD COUNT 5.6 10^3/ul (4.8-10.8)
[2018-01-07 12:28] LABS: ANION GAP 8 (8-16); BLOOD UREA NITROGEN 8 mg/dl (7-20); CALCIUM 9.6 mg/dl (8.4-10.2); CARBON DIOXIDE 33 mmol/L (21-31); CHLORIDE 104 mmol/L (97-110); CREATININE 0.82 mg/dl (0.61-1.24); GLUCOSE 107 mg/dl (70-220); PHOSPHORUS 3.8 mg/dl (2.5-4.9); POTASSIUM 4.7 mmol/L (3.5-5.1); SODIUM 140 mmol/L (135-144)
[2018-01-07 13:20] LABS: INR 1.06; PROTIME 13.9 Sec (11.9-14.9); PT RATIO 1.1
[2018-01-07 13:21] LABS: PARTIAL THROMBOPLASTIN TIME 34.4 Sec (25.0-35.0)
[2018-01-07] MEDS: morphine 2 MG INJ IV (19:22)
[2018-01-08] MEDS: morphine 2 MG INJ IV ×2 (02:11→21:53)
[2018-01-08] MEDS: DEXTROSE 5%-0.45% NACL 1,000 ML IV ×3 (02:11→18:46)
[2018-01-08 05:45] LABS: ADD MAN DIFF? NO
[2018-01-08 06:12] LABS: BASOPHILS % 0.5 % (0.0-2.0); EOSINOPHILS # 0.1 10^3/ul (0.0-0.5); EOSINOPHILS % 2.3 % (0.0-7.0); HEMATOCRIT 36.5 % (42.0-52.0); LYMPHOCYTES # 0.9 10^3/ul (0.8-2.9); LYMPHOCYTES % 20.3 % (15.0-51.0); MEAN CORPUSCULAR HEMOGLOBIN 29.2 pg (29.0-33.0); MEAN CORPUSCULAR HGB CONC 32.9 g/dl (32.0-37.0); MEAN CORPUSCULAR VOLUME 88.8 fl (82.0-101.0); MEAN PLATELET VOLUME 9.9 fl (7.4-10.4); MONOCYTE # 0.4 10^3/ul (0.3-0.9); MONOCYTES % 8.3 % (0.0-11.0); NEUTROPHILS % 68.4 % (39.0-77.0); PLATELET COUNT 196 10^3/UL (140-415); RED BLOOD COUNT 4.11 10^6/ul (4.70-6.10)
[2018-01-08 06:12] LABS: WHITE BLOOD COUNT 4.4 10^3/ul (4.8-10.8)
[2018-01-08 06:42] LABS: ANION GAP 10 (8-16); BLOOD UREA NITROGEN 8 mg/dl (7-20); CALCIUM 9.1 mg/dl (8.4-10.2); CARBON DIOXIDE 31 mmol/L (21-31); CHLORIDE 102 mmol/L (97-110); CREATININE 0.91 mg/dl (0.61-1.24); GLUCOSE 116 mg/dl (70-220); SODIUM 139 mmol/L (135-144)
[2018-01-09] MEDS: morphine 2 MG INJ IV ×4 (01:41→21:25)
[2018-01-09 05:47] LABS: ADD MAN DIFF? NO
[2018-01-09 05:56] LABS: WHITE BLOOD COUNT 4.3 10^3/ul (4.8-10.8)
[2018-01-09 05:56] LABS: BASOPHILS % 0.2 % (0.0-2.0); EOSINOPHILS # 0.1 10^3/ul (0.0-0.5); EOSINOPHILS % 3.1 % (0.0-7.0); HEMATOCRIT 33.5 % (42.0-52.0); HEMOGLOBIN 11.2 g/dl (14.0-18.0); LYMPHOCYTES # 0.9 10^3/ul (0.8-2.9); LYMPHOCYTES % 21.4 % (15.0-51.0); MEAN CORPUSCULAR HEMOGLOBIN 29.2 pg (29.0-33.0); MEAN CORPUSCULAR HGB CONC 33.4 g/dl (32.0-37.0); MEAN CORPUSCULAR VOLUME 87.5 fl (82.0-101.0); MEAN PLATELET VOLUME 9.9 fl (7.4-10.4); MONOCYTE # 0.4 10^3/ul (0.3-0.9); MONOCYTES % 8.7 % (0.0-11.0); NEUTROPHIL # 2.8 10^3/ul (1.6-7.5); NEUTROPHILS % 66.4 % (39.0-77.0); PLATELET COUNT 191 10^3/UL (140-415); RED BLOOD COUNT 3.83 10^6/ul (4.70-6.10); RED CELL DISTRIBUTION WIDTH 15.1 % (11.5-14.5)
[2018-01-09 06:30] LABS: ANION GAP 12 (8-16); BLOOD UREA NITROGEN 8 mg/dl (7-20); CARBON DIOXIDE 28 mmol/L (21-31); CHLORIDE 104 mmol/L (97-110); CREATININE 0.89 mg/dl (0.61-1.24); GLUCOSE 98 mg/dl (70-220); POTASSIUM 3.8 mmol/L (3.5-5.1); SODIUM 140 mmol/L (135-144)
[2018-01-09] MEDS: DEXTROSE 5%-0.45% NACL 1,000 ML IV (10:00)
[2018-01-09] MEDS: LIDOCAINE 5% 35 GM OINT TOP ×2 (15:07→21:18)
[2018-01-09] MEDS: HYDROCORTISONE 2.5% 28.35 GM OINT TOP ×2 (15:07→21:18)
[2018-01-10] MEDS: morphine 2 MG INJ IV ×3 (05:39→15:21)
[2018-01-10 06:01] LABS: ADD MAN DIFF? NO
[2018-01-10 06:03] LABS: WHITE BLOOD COUNT 5.3 10^3/ul (4.8-10.8)
[2018-01-10 06:03] LABS: BASOPHILS % 0.6 % (0.0-2.0); EOSINOPHILS # 0.2 10^3/ul (0.0-0.5); EOSINOPHILS % 3.2 % (0.0-7.0); HEMATOCRIT 37.6 % (42.0-52.0); HEMOGLOBIN 12.6 g/dl (14.0-18.0); LYMPHOCYTES # 1.6 10^3/ul (0.8-2.9); LYMPHOCYTES % 29.6 % (15.0-51.0); MEAN CORPUSCULAR HEMOGLOBIN 29.2 pg (29.0-33.0); MEAN CORPUSCULAR HGB CONC 33.5 g/dl (32.0-37.0); MEAN PLATELET VOLUME 9.9 fl (7.4-10.4); MONOCYTE # 0.4 10^3/ul (0.3-0.9); MONOCYTES % 7.5 % (0.0-11.0); NEUTROPHIL # 3.2 10^3/ul (1.6-7.5); NEUTROPHILS % 58.9 % (39.0-77.0); PLATELET COUNT 236 10^3/UL (140-415); RED BLOOD COUNT 4.32 10^6/ul (4.70-6.10)
[2018-01-10 06:36] LABS: ANION GAP 13 (8-16); BLOOD UREA NITROGEN 12 mg/dl (7-20); CALCIUM 9.5 mg/dl (8.4-10.2); CARBON DIOXIDE 27 mmol/L (21-31); CHLORIDE 106 mmol/L (97-110); CREATININE 0.83 mg/dl (0.61-1.24); GLUCOSE 90 mg/dl (70-220); SODIUM 142 mmol/L (135-144)
[2018-01-10] MEDS: LIDOCAINE 5% 35 GM OINT TOP ×2 (10:08→15:13)
[2018-01-10] MEDS: HYDROCORTISONE 2.5% 28.35 GM OINT TOP ×2 (10:08→15:13)
== END 2018-01-10 19:20 | disposition home or self-care (01) | DRG 331 ==
LOC: REC 08:30 → MS2 16:30
PROC: 0DBB0ZZ Excision of Ileum, Open Approach (ICD-10-PCS; principal; 2018-01-04 10:30)
DX: Z43.2 Encounter for attention to ileostomy (principal); K60.2 Anal fissure, unspecified; Z85.048 Personal history of other malignant neoplasm of rectum, rectosigmoid junction, and anus; Z92.21 Personal history of antineoplastic chemotherapy; Z90.49 Acquired absence of other specified parts of digestive tract; Z92.3 Personal history of irradiation
CPT/HCPCS: 71045; 80048; 82962; 83735; 84100; 85025; 85610; 85730; 88307; 93005

== ENCOUNTER 2018-09-25 06:41 | Emergency (ER) | payer OTHER ==
[2018-09-25] MEDS: CEPHALEXIN 500 MG CAP PO (07:26)
[2018-09-25] MEDS: TRIMETHOPRIM/SULFAMETHOX (DS) TAB PO (07:26)
[2018-09-25] MEDS: LIDOCAINE 1% (MDV) 20 ML INJ SC (07:26)
== END 2018-09-25 08:09 | disposition home or self-care (01) ==
LOC: FTE 06:41
DX: L60.0 Ingrowing nail (principal); L03.031 Cellulitis of right toe; Z85.038 Personal history of other malignant neoplasm of large intestine; Z85.048 Personal history of other malignant neoplasm of rectum, rectosigmoid junction, and anus
CPT/HCPCS: 11765; 99283-25

== ENCOUNTER 2018-12-12 05:42 | Day surgery (SDC) | payer OTHER ==
[2018-12-12] MEDS ORDERED: FENTAnyl 50 MCG/ML VIAL (08:37)
[2018-12-12] MEDS ORDERED: MIDAZOLAM 1 MG/ML 2 ML INJ ×2 (08:37)
== END 2018-12-12 08:38 | disposition home or self-care (01) ==
LOC: GIL 05:42
DX: K29.50 Unspecified chronic gastritis without bleeding (principal); K21.0 Gastro-esophageal reflux disease with esophagitis; K29.60 Other gastritis without bleeding
CPT/HCPCS: 43239; 88305; 88312